=== PATIENT | female | born 1955 | race Two or more races ===

== ENCOUNTER → 2024-06-14 | Outpatient (CLI) | payer MEDICARE, MEDICAID, SELFPAY ==
[2024-06-14 16:09] LABS: Coccid Serology, CF CSF (UCD)* See Sep Rpt; Misc Send Out* See Sep Rpt
[2024-06-14 17:11] LABS: Glucose,CSF 57 mg/dL (40-70); Protein Total,CSF 48 mg/dL (8-32)
[2024-06-14 17:21] LABS: CSF Cell Count Tube # Tube # 4; CSF Color Colorless (Colorless); CSF Mononuclear 75 %; CSF Polynuclear WBC 25 %; CSF Red Blood Cell 8 /cmm; CSF White Blood Cell 4 /cmm; CSF, Appearance Clear (Clear)
[2024-06-14 17:43] LABS: CSF Gram Stain Alert Gram Stain Completed
[2024-06-19 13:50] LABS: Albumin, CSF 18.7 mg/dL (8.0-42.0); IgG Index, CSF 0.52 (<0.70); IgG, CSF 1.9 mg/dL (0.8-7.7); IgG, Serum 847 mg/dL (600-1540); Synthesis Rate IgG, CSF -1.9 mg/24 h (-9.9 TO +3.3)
[2024-06-20 06:25] LABS: Albumin, Serum 4.4 g/dL (3.6-5.1); VDRL, CSF Qual* NON-REACTIVE
[2024-06-25 06:41] LABS: Angiotensin Convert Enz, CSF* 9 U/L (< OR = 15); Myelin Basic Protein, CSF* <2.0 mcg/L (< OR = 4.0); Oligoclonal Bands, CSF* PRESENT (ABSENT)
== END | disposition home or self-care (01) ==
PROVIDERS: PCP Family Medicine; Referring Provider Psychiatry & Neurology Neurology; Visit Provider Psychiatry & Neurology Neurology
DX: G37.9 Demyelinating disease of central nervous system, unspecified (principal)
CPT/HCPCS: 36415; 82040; 82042; 82164; 82784; 82945; 83873; 83916; 84157; 86171; 86592; 86617; 87070; 87205; 89051